=== PATIENT | female | born 1980 | race Caucasian/White ===

== ENCOUNTER 2020-04-01 20:03 | Emergency (ER) | payer BC ==
[~2020-04-01 20:03] MED LIST: AURALGAN EAR DR14 ML OT; NORCO 5-325 TA1 EACH PO; ZPAK PO
== END 2020-04-01 20:39 | disposition left against medical advice (07) ==
LOC: M.ERS 20:03
DX: M54.2 Cervicalgia (principal); R51.9 Headache, unspecified; Z53.21 Procedure and treatment not carried out due to patient leaving prior to being seen by health care provider; V89.2XXA Person injured in unspecified motor-vehicle accident, traffic, initial encounter; Y93.89 Activity, other specified; Y92.89 Other specified places as the place of occurrence of the external cause; Y99.8 Other external cause status